=== PATIENT | female | born 1980 | race Hispanic/Latino ===

== ENCOUNTER 2017-11-24 03:14 | Emergency (ER) | payer SELFPAY ==
[2017-11-24 03:31] VITALS: RESP 14; TEMP 98.3; O2SAT 97
[2017-11-24] MEDS ORDERED: DiphenhydrAMINE 50 mg/ml Inj IVP STA (03:49)
[2017-11-24] MEDS ORDERED: Sodium Chloride 0.9% 1,000 ML IV STA (03:49)
[2017-11-24] MEDS ORDERED: Albuterol-Ipratrop 3 mg / 0.5 (3 ml) UD INH STA (03:50)
[2017-11-24] MEDS ORDERED: Albuterol-Ipratrop 3 mg / 0.5 (3 ml) UD ONE (04:03)
[2017-11-24] MEDS ORDERED: DiphenhydrAMINE 50 mg/ml Inj ONE (04:03)
[2017-11-24] MEDS ORDERED: Sodium Chloride 0.9% 1,000 ML ONE (04:04)
[2017-11-24 04:09] LABS: BASO # 0.1 K/uL (0.0-0.2); EOS # 0.1 K/uL (0.0-0.7); EOS % 0.9 % (0.0-4.0); HEMOGLOBIN 11.3 g/dL (11.0-16.0); LYMPH # 1.7 K/uL (1.0-4.3); LYMPH % 16.9 % (20.0-40.0); MEAN CELL VOLUME 81.8 fL (81.0-99.0); MEAN CORPUSCULAR HEMOGLOBIN 27.2 pg (27.0-31.0); MEAN CORPUSCULAR HGB CONC 33.3 g/dL (33.0-37.0); MONO # 0.7 K/uL (0.0-0.8); MONO % 6.8 % (0.0-10.0); NEUT # 7.3 K/uL (1.8-7.0); NEUT % 74.4 % (50.0-75.0); RBC 4.14 Mil/uL (3.80-5.20); RED CELL DISTRIBUTION WIDTH 16.6 % (11.5-14.5); WHITE BLOOD COUNT 9.8 K/uL (4.8-10.8)
--- NOTE | 2017-11-24 04:11 | C.PDOC ---
History Of Present Illness 37 y/o F p/w headache x 3 days. Feels headache as both sides (although just holding hand to L sided head) like pounding associated with photophobia. Patient states she also feels dehydrated and weak. Denies fever, stiff neck, chest pain, dyspnea, nausea, vomiting. Time Seen by Provider: 11/24/17 03:26 Chief Complaint (Nursing): Shortness Of Breath Past Medical History Vital Signs: Last Vital Signs Temp 98.3 F 11/24/17 05:54 Pulse 73 11/24/17 05:54 Resp 14 11/24/17 05:54 BP 88/55 L 11/24/17 05:54 Pulse Ox 99 11/24/17 05:54 - Medical History PMH: Asthma Denies: Chronic Kidney Disease Family History: States: No Known Family Hx - Social History Hx Alcohol Use: No Hx Substance Use: No - Immunization History Hx Tetanus Toxoid Vaccination: No Hx Influenza Vaccination: No Hx Pneumococcal Vaccination: No Review Of Systems Except As Marked, All Systems Reviewed And Found Negative. Constitutional: Negative for: Fever Cardiovascular: Negative for: Chest Pain Physical Exam - Physical Exam Additional Physical Exam Comments: Constitutional: No acute distress. Head: Normocephalic. Atraumatic. Eyes: PERRL. ENT: Moist mucous membranes. Neck: Supple. Cardiovascular: Regular rate. Radial pulse 2+ bilaterally. Chest: No tenderness. Respiratory: Clear to auscultation bilaterally. GI: Soft. Nontender. Nondistended. Back: No CVA tenderness. Musculoskeletal: No tenderness or swelling of extremities. Skin: No rash. Neurologic: Alert, no focal deficit. ED Course And Treatment - Laboratory Results Result Diagrams: 11/24/17 04:03 11/24/17 04:03 O2 Sat by Pulse Oximetry: 97 Medical Decision Making Medical Decision Making: Patient states she feels much better after treatment. Disposition - Disposition Disposition: HOME/ ROUTINE Disposition Time: 05:56 Condition: STABLE Instructions: Migraine Headache (DC) Forms: [employer] (Russian) - Clinical Impression Clinical Impression: Headache
[2017-11-24 04:20] LABS: ALB/GLOB RATIO 1.4 (1.0-2.1); ALBUMIN 4.4 g/dL (3.5-5.0); ALT/SGPT 16 U/L (9-52); AST/SGOT 15 U/L (14-36); BLOOD UREA NITROGEN 9 mg/dL (7-17); CALCIUM 9.1 mg/dl (8.6-10.4); GFR NON-AFRICAN AMERICAN > 60; LIPASE 122 U/L (23-300)
[2017-11-24 05:57] VITALS: BP 88/55; PULSE 73
== END 2017-11-24 06:14 | disposition home or self-care (01) ==
LOC: C.ER 03:14
DX: R51 Headache (principal)
CPT/HCPCS: 80053; 83690; 84702; 85025; 96361; 96374; 96375; 99285; J1200; J1885; J2765; J7030